=== PATIENT | female | born 1965 | race Hispanic/Latino ===

== ENCOUNTER 2017-02-24 15:28 | Emergency (ER) | payer MEDICARE ==
[2017-02-24 16:34] LABS: Basophils % (Auto) 0.8 % (0.0-1.8); Eosinophils % (Auto) 1.8 % (0.0-4.3); Hematocrit 44.9 % (30.3-42.9); Hemoglobin 14.9 gm/dl (10.1-14.3); Mean Corpuscular HGB Conc 33 % (30-34); Mean Corpuscular Hemoglobin 31 pg (28-32); Mean Corpuscular Volume 94 fl (79-97); Platelet Count 280 K/mm3 (140-440); Red Cell Distribution Width 14.2 % (13.2-15.2); White Blood Count 11.9 K/mm3 (4.5-11.0)
[2017-02-24 16:38] LABS: Anion Gap 18 mmol/L; Blood Urea Nitrogen 12 mg/dL (7-17); Calcium 8.9 mg/dL (8.4-10.2); Carbon Dioxide 27 mmol/L (22-30); Chloride 99.2 mmol/L (98-107); Glucose 125 mg/dL (65-100); Potassium 3.9 mmol/L (3.6-5.0); Sodium 140 mmol/L (137-145)
[2017-02-24] MEDS ORDERED: BABY ASPIRIN PO ONE (22:38)
[2017-02-24] MEDS ORDERED: MORPHINE IV ONE (22:38)
--- NOTE | 2017-02-24 22:38 | Emergency Department Report ---
HPI - General Chief Complaint: Chest Pain Time Seen by Provider: 02/24/17 22:29 - HPI HPI: This is a 51-year-old female presents to the emergency department with complaint of a 2 week history of lower extremity swelling but more recently some progressive pain. This morning she began having some palpitations and chest discomfort as well as shortness of breath. The palpitations and actually been going on for the past month but worsened this morning. She tried some [id number] treatments as well as one of her mothers [place] without any relief. She is a tobacco smoker but denies any illicit drug use. She has a remote history of cervical cancer and some history of chronic back pain. The patient is from [place] and drove down here from there a week ago. ED Past Medical Hx - Past Medical History Hx of Cancer: Yes (Cervical) Additional medical history: Spinal stenosis, chronic back pain - Surgical History Past Surgical History?: Yes Hx Cholecystectomy: Yes Additional Surgical History: Back & neck surgeries, R hand surgery - Social History Smoking Status: Current Every Day Smoker Substance Use Type: None ED Review of Systems ROS: Stated complaint: CHEST PAIN/SWOLLEN FEET/LIGHTHEADED Other details as noted in HPI Comment: All other systems reviewed and negative Constitutional: denies: chills, fever Eyes: denies: eye pain, eye discharge, vision change ENT: denies: ear pain, throat pain Respiratory: shortness of breath. denies: cough Cardiovascular: chest pain, palpitations, edema Gastrointestinal: denies: abdominal pain, nausea, diarrhea Genitourinary: denies: urgency, dysuria, discharge Musculoskeletal: denies: back pain, joint swelling, arthralgia Skin: denies: rash, lesions Neurological: denies: headache, weakness, paresthesias Physical Exam - Physical Exam Vital Signs: Vital Signs 02/24/17 15:57 Temperature 98.6 F Pulse Rate 87 Respiratory 20 Rate Blood Pressure 123/45 O2 Sat by Pulse 96 Oximetry Physical Exam: GENERAL: The patient is well-developed well-nourished. HEENT: Normocephalic. Atraumatic. Extraocular motions are intact. Patient has moist mucous membranes. Pupils equal reactive to light bilaterally. NECK: Supple. Trachea is midline. CHEST/LUNGS: Clear to auscultation. There is no respiratory distress noted. HEART/CARDIOVASCULAR: Regular. There is no tachycardia. There is no gallop rub or murmur. ABDOMEN: Abdomen is soft, nontender. Patient has normal bowel sounds. There is no abdominal distention. Morbidly obese habitus. SKIN: Skin is warm and dry. Mild nonpitting swelling of the bilateral lower extremities. No skin color change, warmth or fluctuance. NEURO: The patient is awake, alert, and oriented. The patient is cooperative. The patient has no focal neurologic deficits. The patient has normal speech. MUSCULOSKELETAL: There is no tenderness or deformity. There is no limitation range of motion. There is no evidence of acute injury. ED Course Vital Signs 02/24/17 15:57 Temperature 98.6 F Pulse Rate 87 Respiratory 20 Rate Blood Pressure 123/45 O2 Sat by Pulse 96 Oximetry ED Medical Decision Making - Lab Data Result diagrams: 02/24/17 16:06 02/24/17 16:06 - EKG Data -: EKG Interpreted by Me EKG shows normal: sinus rhythm, axis, intervals, QRS complexes, ST-T waves Rate: normal - EKG Data When compared to previous EKG there are: previous EKG unavailable Interpretation: normal EKG - Radiology Data Radiology results: image reviewed interpreted by me: Chest x-ray did not show any acute process. Heart is normal shape and size. No effusions. No pneumothorax. No signs of pneumonia seen. - Medical Decision Making 51-year-old female presents the emergency department with some chronic lower extremity swelling, palpitations that are acute on chronic and some mild intermittent chest pain. EKG does not show any signs of ST elevation [place]. Labs are unremarkable including negative troponins 3, negative d-dimer and a low BNP. With all this she appears low suspicion for coronary artery disease, pulmonary embolism or CHF. On top of that, the patient recently had a full cardiac workup in [place] that included a negative stress test and an echocardiogram. Vital signs stable throughout her ED course. For all these reasons the patient appears safe for discharge home at this time. She's been encouraged to follow-up with her primary care doctor when she returns to [place]. She will return to the ER with any worsening of her symptoms or any acute distress. - Differential Diagnosis CHF, PE, venous stasis, GERD, pneumonia Critical Care Time: No Critical care attestation.: If time is entered above; I have spent that time in minutes in the direct care of this critically ill patient, excluding procedure time. ED Disposition Clinical Impression: Palpitations, Swelling of lower extremity Disposition: DC-01 TO HOME OR SELFCARE Is pt being admited?: No Condition: Stable Instructions: Palpitations (ED), Leg Edema (ED), Chest Pain (ED) Additional Instructions: Please follow-up with your primary care doctor as soon as you return back to [place]. Return to the emergency department with any worsening of your symptoms or any acute distress. Referrals: PRIMARY CARE, [Primary Care Provider] - [facility] Time of Disposition: 23:33
[2017-02-24 23:51] VITALS: BP 170/56
--- NOTE | 2017-02-25 09:16 | XRay Report ---
Single view chest: History: Chest pain. Findings: Cardiomegaly. Trachea is midline. No consolidation, pneumothorax or pleural effusion. Impression: No acute cardiopulmonary findings.
== END 2017-02-24 23:52 | disposition home or self-care (01) ==
LOC: ED 15:28
DX: R00.2 Palpitations (principal); R06.02 Shortness of breath; M79.89 Other specified soft tissue disorders; F17.210 Nicotine dependence, cigarettes, uncomplicated
CPT/HCPCS: 36415; 71010; 80048; 83880; 84484; 85025; 85379; 93005; 93010; 96374; 99284; J2270